=== PATIENT | female | born 1965 | race Caucasian/White ===

== ENCOUNTER → 2023-07-15 16:38 | Outpatient (BNVA) | payer OTHER, SELFPAY | PROVIDERS: Visit Provider Nurse Practitioner Family | DX: R19.8 Other specified symptoms and signs involving the digestive system and abdomen (principal); Z48.03 Encounter for change or removal of drains | CPT/HCPCS: 87070; 87075; 87205 ==

== ENCOUNTER 2023-10-04 14:55 | Outpatient (CLI) | payer OTHER, SELFPAY ==
--- NOTE | 2023-10-04 14:58 | XR_ITS ---
WS: [id number] SCREENING DEXA SCAN [place] CLINICAL INFORMATION: osteoporosis screening, postmenopausal, hx tamoxifen x 10 yr COMPARISON: None. FINDINGS: The L1-L4 bone mineral density measures 1.280 g/cm2. This corresponds to a T score score of 0.8 and Z score of 1.2. Left femoral neck bone mineral density measures 0.948 g/cm2. This corresponds to a T score of -0.5 an d Z score of -0.1. Right femoral neck bone mineral density measures 0.910 g/cm2. This corresponds to a T score -0.8of an d Z score of -0.4. Mean femoral neck bone mineral density measures 0.929 g/cm2. This corresponds to a T score of -0.6 an d Z score of -0.3. IMPRESSION: Normal bone mineralization. Patient's FRAX calculated 10 year probability for major osteoporotic fracture is 5.9% and osteoporoti c hip fracture is 0.2%.
== END 2023-10-04 14:56 | disposition home or self-care (01) ==
LOC: RAD 14:56
PROVIDERS: PCP Family Medicine; Visit Provider Family Medicine
DX: Z78.0 Asymptomatic menopausal state (principal); Z92.29 Personal history of other drug therapy
CPT/HCPCS: 77080

== ENCOUNTER → 2024-05-28 09:49 | Outpatient (BNVA) | payer OTHER, SELFPAY | PROVIDERS: PCP Family Medicine; Visit Provider Nurse Practitioner Family | DX: Z00.00 Encounter for general adult medical examination without abnormal findings (principal) | CPT/HCPCS: 80053; 80061; 83036; 84443; 85025 ==

== ENCOUNTER → 2024-06-03 09:03 | Outpatient (BNVA) | payer OTHER, SELFPAY | PROVIDERS: PCP Family Medicine; Visit Provider Family Medicine | DX: Z12.4 Encounter for screening for malignant neoplasm of cervix (principal) | CPT/HCPCS: 87624 ==

== ENCOUNTER → 2025-03-03 14:52 | Outpatient (BNVA) | payer OTHER, SELFPAY | PROVIDERS: PCP Family Medicine; Visit Provider Nurse Practitioner Family | DX: M25.571 Pain in right ankle and joints of right foot (principal) | CPT/HCPCS: 73610 ==

== ENCOUNTER → 2025-03-24 07:27 | Outpatient (BNVA) | payer OTHER, SELFPAY | PROVIDERS: PCP Family Medicine; Visit Provider Family Medicine Adult Medicine | DX: R30.0 Dysuria (principal) | CPT/HCPCS: 81000 ==

== ENCOUNTER 2025-03-26 05:00 | Outpatient (RCR) | payer OTHER, SELFPAY | END 2025-04-25 23:59 | disposition home or self-care (01) | LOC: TPT 05:00 | PROVIDERS: Visit Provider Nurse Practitioner Family | DX: M25.571 Pain in right ankle and joints of right foot (principal) | CPT/HCPCS: 97110; 97140; 97161 ==

== ENCOUNTER 2025-04-26 05:00 | Outpatient (RCR) | payer OTHER, SELFPAY | END 2025-05-24 07:48 | disposition home or self-care (01) | LOC: TPT 05:00 | PROVIDERS: Visit Provider Nurse Practitioner Family | DX: M25.571 Pain in right ankle and joints of right foot (principal) | CPT/HCPCS: 97110; 97140 ==

== ENCOUNTER → 2025-06-17 10:31 | Outpatient (BNVA) | payer OTHER, SELFPAY | PROVIDERS: PCP Family Medicine; Visit Provider Family Medicine | DX: Z00.00 Encounter for general adult medical examination without abnormal findings (principal) | CPT/HCPCS: 80053; 80061; 83036 ==